=== PATIENT | female | born 1960 | race Caucasian/White ===

== ENCOUNTER 2021-09-03 09:02 | Outpatient (CLI) | payer OTHER, SELFPAY ==
--- NOTE | ~2021-09-03 | US_ITS ---
EXAMINATION: US venous doppler LE RT DATE: 09/03/2021 10:01 INDICATION: Acute deep venous thrombosis of a proximal vein of the right lower limb TECHNIQUE: Grayscale ultrasound images without and with compression and Doppler ultrasound images of the right lower extremity veins were obtained. COMPARISON: None. FINDINGS: The visualized portions of right common femoral vein, profunda (deep) femoral vein, femoral vein, pop liteal vein, peroneal trunk, posterior tibial veins, peroneal veins and gastrocnemius vein are patent . The right greater saphenous vein is not visualized and per patient report has been previously harve lynetted for a bypass graft. IMPRESSION: 1. No deep venous thrombosis in the right lower limb. 2. Nonvisualized right greater saphenous vein, reportedly previously harvested for bypass graft. Reviewed, dictated and finalized at location B.
== END 2021-09-03 09:03 | disposition home or self-care (01) ==
PROVIDERS: PCP Internal Medicine Infectious Disease; Visit Provider Internal Medicine Hematology & Oncology
DX: I82.4Y1 Acute embolism and thrombosis of unspecified deep veins of right proximal lower extremity (principal)
CPT/HCPCS: 93971

== ENCOUNTER 2024-10-22 08:44 | Outpatient (CLI) | payer OTHER, SELFPAY ==
--- OUTSIDE RECORDS SUMMARY | 2024-10-22 08:52 | XMS_ITS | Encounter Summary ---
Author Organization [facility] my[facility]BO [facility] Address [address] [facility] [place] [address] Phone Care Team Providers Care Printing Technician Name Role Phone Grant Bone MD Primary Care Provider [phone] Encounter Details Date Type Department Care Team (Late Contact Info) Description 09/05/2024 Office Communication [place] [id number] [facility] [address] [place] [address] Anabelle Santana MA [address] [place] [address] Social History Tobacco Use Types Packs/Day Years Used Date Smoking Tobacco: Never Assessed Comments Unknown Sex and Gender Information Value Date Recorded Sex Assigned at Not on file Legal Sex Female 3:44 PM EST Gender Identity Not on file Sexual Orientation Not on file documented as of this encounter Plan of Treatment Upcoming Encounters Date Type Department Care Team (Late Contact Info) Description 02/25/2025 12:45 PM SUPERVISOR CUSTOMER COMPLAINT SERVICE Office Visit [place] [facility] [address] [facility] [address] [place] [address] Ramez Salazar DO [address] [facility] 1 [place] [address] documented as of this encounter Visit Diagnoses Not on filedocumented in this encounter Care Teams Printing Technician Relationship Specialty Start Date End Date Grant Bone MD [address] [place] [address] PCP - General Internal Medicine 03/13/24 documented as of this encounter
--- OUTSIDE RECORDS SUMMARY | 2024-10-22 08:52 | XMS_ITS | Encounter Summary ---
Author Organization [facility] Address [address] [place] [address] Care Team Providers Care Breaker Layer Name Role Phone Grant Bone MD Primary Care Provider Encounter Details Date Type Department Care Team (Late st Contact Info) Description 05/26/2017 Pre-Procedure Call [facility] Interventional Radiology [address] [address] Magalie Cruz PA [address] [place] [address] Social History Tobacco Use Types Packs/Day Years Used Date Smoking Tobacco: Former Cigarettes Q uit: 03/06/2017 Smokeless Tobacco: Never Alcohol Use Standard Drinks/Week Comments No 0 (1 standard drink = 0.6 oz pur e alcohol) Comments No Sex and Gender Information Value Date Recorded Sex Assigned at Not on file Legal Sex Female 9:20 AM CDT Gender Identity Not on file Sexual Orientation Not on file documented as of this encounter Plan of Treatment Not on file documented as of this encounter Visit Diagnoses Not on filedocumented in this encounter Care Teams Breaker Layer Relationship Specialty Start Date End Date Grant Bone MD PCP - General INTERNAL MEDICINE 07/24/17 documented as of this encounter
--- OUTSIDE RECORDS SUMMARY | 2024-10-22 08:52 | XMS_ITS | Encounter Summary ---
Author Organization [facility] Address [address] [facility] [place] [address] Care Team Providers Care Pad Machine Offbearer Name Role Phone Tamara Cardona RN Unavailable [phone] Grant Bone MD Primary Care Provider Reason for Visit * Reason Comments Refill Request Encounter Details Date Type Department Care Team (Late st Contact Info) Description 08/30/2018 Refill [facility] [address] [facility] [place] [address] Emanuel Acosta MD [address] [facility] [address] Refill Request Social History Tobacco Use Types Packs/Day Years Used Date Smoking Tobacco: Former Cigarettes 2016 Smokeless Tobacco: Former Alcohol Use Standard Drinks/Week Comments No 0 (1 standard drink = 0.6 oz pur e alcohol) Comments No Sex and Gender Information Value Date Recorded Sex Assigned at Not on file Legal Sex Female 5:01 AM FINISHED CLOTH EXAMINER Gender Identity Not on file Sexual Orientation Not on file documented as of this encounter Functional Status * Is person deaf or have serious hearing difficulty? Answer Date of Assessment Author No 08/10/2018 4:00 PM Monica Beebe RN * Is person blind or have serious difficulty seeing? Answer Date of Assessment Author No 08/10/2018 4:00 PM Monica Beebe RN * Does person have serious difficulty walking/climbing stairs? Answer Date of Assessment Author Yes 08/10/2018 4:00 PM Monica Beebe RN * Does person have difficulty dressing/bathing? Answer Date of Assessment Author No 08/10/2018 4:00 PM Monica Beebe RN * Does person have difficulty doing errands alone? Answer Date of Assessment Author Yes 08/10/2018 4:00 PM Monica Beebe RN documented as of this encounter Mental Status * Does person have difficulty concentrating/remembering/making decisions? Answer Entry Date Author No 08/10/2018 4:00 PM Monica Beebe RN documented in this encounter Plan of Treatment Not on file documented as of this encounter Visit Diagnoses Not on filedocumented in this encounter Care Teams Pad Machine Offbearer Relationship Specialty [place] [address] [place] [id number] PCP - General 03/27/18 Tamara Cardona RN [employer] Teacher 02/22/18 documented as of this encounter
--- OUTSIDE RECORDS SUMMARY | 2024-10-22 08:52 | XMS_ITS | Clinical Summary ---
Author Organization [facility] [employer] [facility] Address [address] [facility] [address] [place] [address] Phone Care Team Providers Care Bridge Teacher Name Role Phone Grant Bone MD Primary Care Provider Encounters Date Type Department Care Team Description 10/15/2024 Documentation Only [address] [address] Ramez Salazar, 10/11/2024 Documentation Only [facility], [address] [address] Ramez Salazar, 09/05/2024 Office Communication [facility], [address] [address] Anabelle Santana MA from Last 3 Months Social History Tobacco Use Types Packs/Day Years Used Date Smoking Tobacco: Never Assessed Comments Unknown Sex and Gender Information Value Date Recorded Sex Assigned at Not on file Legal Sex Female 3:44 PM EST Gender Identity Not on file Sexual Orientation Not on file Last Filed Vital Signs Vital Sign Reading Time Taken Comments Blood Pressure 100/58 07/02/2024 3:16 PM CDT Pulse 68 07/02/2024 3:16 PM CDT Temperature 36.7 C (98 F) 07/02/2024 3:16 PM CDT Respiratory Rate 18 07/02/2024 3:16 PM CDT Oxygen Saturation 97% 07/02/2024 3:16 PM CDT Inhaled Oxygen Concentration - - Weight 110 kg (242 lb) 07/02/2024 3:16 PM CDT Height - - Body Mass Index - - Plan of Treatment Upcoming Encounters Date Type Department Care Team (Late st Contact Info) Description 02/25/2025 12:45 PM MECHANICAL APPRENTICE Office Visit [facility], [facility] [address] [facility] [address] [place] [address] Ramez Salazar DO [address] [facility] 1 [place] [address] Health Maintenance Due Date Last Done Comments Breast Cancer Screening 1960 Pneumococcal Vaccine: 50+ Ye ars (1 of 2 - PCV) 1977 Colorectal Cancer Screening: Annual FOBT 12/27/2007 Colorectal Cancer Screening: Colonoscopy 12/27/2007 Colorectal Cancer Screening: Sigmoidoscopy 12/27/2007 Influenza Vaccine (#1) 2024 Hepatitis B Vaccine Aged Out No longe r eligible based on patient's age to complete this topic Insurance [facility] Care Teams Bridge Teacher Relationship Specialty Start Date End Date Grant Bone MD [address] [place] [address] PCP - General Internal Medicine 03/13/24
--- OUTSIDE RECORDS SUMMARY | 2024-10-22 08:52 | XMS_ITS | Clinical Summary ---
Author Organization [facility] Address [address] [place] [address] Care Team Providers Care Mounter Automatic Name Role Phone Tamara Cardona RN Unavailable Grant Bone MD Primary Care Provider Source Comments [facility],non-owned Affiliates and Associated Physician Practices is amultiple site organization consisting of ambulatory clinics and hospital sitesin [place], [place], [place] and [place]. This disclosure is being madepursuant to the Care Everywhere program and may not contain all information available regarding this patient. Last updated 17.[facility] Allergies Active Allergy Reactions Criticality Noted Date Comments Erythromycin Urticaria Medium 02/20/2018 Tamiflu Urticaria,Other Medium 02/20/2018 Syncope Tetracyclines Urticaria Medium 02/20/2018 Medications * Be aware that medications may not be up to date on this document. Alwaysverify current medications with the patient. amLODIPine (NORVASC) 5 MG tablet Take 5 mg by mouth once daily Active atorvastatin (LIPITOR) 40 MG tablet Take 2 (two) tablets by mouth once daily Active gabapentin (NEURONTIN) 300 MG capsule Take 600 mg by mouth 3 times daily Active busPIRone (BUSPAR) 10 MG tablet Take 20 mg by mouth 2 times daily Active acetaminophen (TYLENOL) 500 MG tablet Take 1 tablet by mouth every 4 hours as needed for Fever or Pain Maximum allowable Acetaminophen amount = 4 Grams (4000 mg) / 24 hours. 30 tablet 9 Active Additional Information Patient not taking.Reported on 07/28/2022 allopurinol (ZYLOPRIM) 100 MG tablet TK 1 T PO QD UTD 02/07/202 0 Active fluticasone propionate (FLONASE) 50 MCG/ACT nasal spray SHAKE LQ AND U 2 SPRAYS IEN QD 0 Active rOPINIRole (REQUIP) 0.5 MG tablet TK 1 T PO QD UTD 0 Active Eliquis 5 MG tablet Take 1 (one) tablet by mouth 2 times daily 2 Active clonazePAM (KlonoPIN) 0.5 MG tablet Take 1 (one) tablet by mouth 3 times daily as needed 3 Active furosemide (Lasix) 40 MG tablet TAKE ONE TABLET BY MOUTH EVERY DAY FOR FLUID RETENTION 3 Active metoprolol succinate XL 24hr (Toprol XL) 25 MG tablet Take 1 (one) tablet by mouth once daily 2 Active sacubitril-ismael sartan (Entresto) 24-26 MG tablet 2 Active traMADol (Ultram) 50 MG tablet TAKE TWO TABLETS BY MOUTH TWICE DAILY NEEDED FOR PAIN 3 Active QUEtiapine (SEROquel) 300 MG tablet Take 1 (one) tablet by mouth at bedtime 3 Active Active Problems Problem Noted Date Diagnosed Date Peripheral arterial disease 10/19/2018 Wound infection after surgery 09/04/2018 Femoral artery stenosis, right 07/05/2018 Critical lower limb ischemia 02/19/2018 Iliac artery occlusion, bilateral Social History Tobacco Use Types Packs/Day Years Used Date Smoking Tobacco: Former Cigarettes 2016 Smokeless Tobacco: Former Tobacco Cessation:Counseling Given: No Alcohol Use Standard Drinks/Week Comments No 0 (1 standard drink = 0.6 oz pur e alcohol) Comments No Sex and Gender Information Value Date Recorded Sex Assigned at Not on file Legal Sex Female 5:01 AM FIXED INCOME MANAGER Gender Identity Not on file Sexual Orientation Not on file Last Filed Vital Signs Vital Sign Reading Time Taken Comments Blood Pressure 92/45 07/28/2022 8:52 AM CDT left arm 110/80 Pulse 100 07/28/2022 8:52 AM CDT Temperature 36.2 C (97.2 F) 07/28/2022 8:52 AM CDT Respiratory Rate 17 07/30/2019 1:59 PM CDT Oxygen Saturation 98% 07/28/2022 8:5 2 AM CDT Inhaled Oxygen Concentration 28% 07/2018 12:00 PM FIXED INCOME MANAGER Weight 103 kg (227 lb) 07/28/2022 8:52 AM CDT Height 162.6 cm (5' 4) 07/28/2022 8:52 AM CDT Body Mass Index 38.96 07/28/2022 8:52 AM CDT Plan of Treatment Health Maintenance Due Date Last Done Comments BONE DENSITY TESTING 1960 COLOGUARD (AGES 45-75) - COLON CA SCREENING 1958 COLON MONITORING 1958 COLONOSCOPY - COLON CA SCREENING 1958 CT COLONOGRAPHY - COLON CA SCREENING 1958 Colorectal Cancer Screening 1958 FIT - COLON CA SCREENING 1958 FLEX SIG - COLON CA SCREENING 1958 DTAP/TDAP/TD VACCINES (1 - Tdap) 1977 PNEUMOCOCCAL VACCINE 50+ (1 of 1 - PCV) 2008 ZOSTER VACCINE (1 of 2) 2008 MAMMOGRAM 05/12/2016 05/12/2014 Respiratory Syncytial Virus (RSV) Vaccine Pt: or over 60 yrs (1 - Risk 60-74 years 1-dose series) 2018 SCREENING FOR DIABETES 07/29/2022 0, 09/07/2018, 09/06/2018, Additional history exists DEPRESSION SCREENING 02/21/2024 COVID-19 VACCINE ( season) 2024 INFLUENZA VACCINE (#1) 2024 HEPATITIS C SCREENING Completed 09/04/2018 HIV SCREENING Completed 09/04/2018 HEPATITIS B VACCINE Aged Out No longe r eligible based on patient's age to complete this topic HIB VACCINE Aged Out No longer eligi ble based on patient's age to complete this topic HPV VACCINE Aged Out No longer eligi ble based on patient's age to complete this topic MENINGOCOCCAL (Group B) VACCINE SHARED DECISION-MAKING Aged Out No longer eligible based on patient's age to complete this topic MENINGOCOCCAL GROUPS A/C/Y/W VACCINE Aged Out No longer eligible based on patient's age to complete this topic Medical Devices Implanted Type Area Mainspring Winder Device Identifier Shelf Expiration Date Model / Serial / Lot Graft Cv 12/7mm 40cm Hmshld Gld Mcvl 2 Implanted:Qty: 1 on 02/23/2018 by Renaldo Joiner MD at [facility] N/A: Aorta Maquet 05/20/2022 [id number] / / [id number] Procedures Procedure Name Priority Date/Time Associated Diagnosis Comments BASIC METABOLIC PANEL (CALCIUM TOTAL) STAT 07/30/2019 6:47 AM CDT PAD (peripheral artery disease) HEPATITIS C AB SCREEN RFLX NAAT QUANT STAT 09/04/2018 5:34 PM CDT HIV-1 HIV-2 ANTIGEN/ANTIBODY STAT 09/04/2018 5:34 PM CDT from Last 3 Months or Most Recently Relevant to Health Maintenance Results * (ABNORMAL) BASIC METABOLIC PANEL (CALCIUM TOTAL) (07/30/2019 6:47 AM CDT) BUN 19 7 - 26 mg/dL 07/30/2019 7:33 AM [facility] Creatinine 1.0 0.6 - 1.2 mg/dL 07/30/2019 7:33 AM [facility] Sodium 142 136 - 145 mmol/L 07/30/2019 7:33 AM [facility] Potassium 4.2 3.5 - 4.5 mmol/L 07/30/2019 7:33 AM [facility] Chloride 105 98 - 107 mmol/L 07/30/2019 7:33 AM [facility] CO2 24 22 - 29 mmol/L 07/30/2019 7:33 AM [facility] Glucose 142(H) 70 - 115 mg/dL 07/30/2019 7:33 AM [facility] Calcium 10.0 8.4 - 10.2 mg/dL 07/30/2019 7:33 AM [facility] Anion Gap 17 8 - 18 07/30/2019 7:33 AM [facility] BUN/Creatinine Ratio 19 7 - 23 07/30/2019 7:33 AM [facility] Osmolality Calculated 299 270 - 300 mOsm/kg 07/30/2019 7:33 AM [facility] eGFR 57(L) >60 mL/min/1.7 3 m2 07/30/2019 7:33 AM CDT [facility] Blood BLOOD SPECIMEN / Unknown Venipuncture / Unknown 07/30/2019 6:47 AM CDT 07/30/2019 7:03 AM CDT Renaldo Joiner MD LAB - CHEMISTRY ORDERABLES Final Result Performing Organization Address [facility]/ZIP Co de Phone Number [facility] [address] [place] [address], [facility] [phone] * HIV-1 HIV-2 ANTIGEN/ANTIBODY (09/04/2018 5:34 PM CDT) HIV Antigen/Antibod y 1 & 2 Non-reacti ve Non-react maurice 09/04/2018 6:22 PM CDT [facility] Comment: Neither HIV-1 p24 Antigen nor HIV-1/HIV-2 Antibodies are detected. Blood BLOOD SPECIMEN / Unknown Venipuncture / Unknown 09/04/2018 5:34 PM CDT 09/04/2018 5:41 PM CDT Result [facility] Gricelda Espitia MD LAB - HEMATOLOGY ORDERABLES Susie l Result Performing Organization Address City/[facility] [[email or web address]] Co de Phone Number [facility] [address] [place] [address] * HEPATITIS C AB SCREEN RFLX NAAT QUANT (09/04/2018 5:34 PM CDT) Hepatitis C Antibody Non-react maurice Non-reac tive 09/04/2018 6:22 PM CDT [facility] Comment: Hepatitis C Antibody screen indicates no serologic evidence of past or current infection with Hepatitis C Virus. Patients with unexplained liver disease who are immunocompromised or suspected of having acute Hepatitis C infection may benefit from Nucleic Acid Test (CARMEN) for Hepatitis C Viral RNA to confirm Hepatitis C status. 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 Adv Directive/Living Will/POA 09/10/2018 7:06 AM * Full Code (Latest Code Status on File) Date Activated Date Inactivated Comments 09/04/2018 6:11 PM 09/07/2018 6:30 PM * Full Code Date Activated Date Inactivated Comments 08/10/2018 4:03 PM 08/14/2018 2:02 PM * Full Code Date Activated Date Inactivated Comments 02/25/2018 12:11 PM 03/02/2018 12:41 PM * Full Code Date Activated Date Inactivated Comments 02/19/2018 5:39 PM 02/25/2018 12:11 PM Care Teams Mounter Automatic Relationship Specialty Start Date End Date Grant Bone MD [address] [place], [place] [id number] PCP - General 03/27/18 Tamara Cardona RN Oriental Medicine Practitioner 02/22/18
--- OUTSIDE RECORDS SUMMARY | 2024-10-22 08:52 | XMS_ITS | Encounter Summary ---
Author Organization [facility] Address [address] [place] [address] Care Team Providers Care Twisting Frame Fixer Name Role Phone Grant Bone MD Primary Care Provider [phone] Encounter Details Date Type Department Care Team (Late st Contact Info) Description 05/30/2017 Pre-Procedure Call [facility] Pre-Admission [place] [address] Ramez Paulino MD Social History Tobacco Use Types Packs/Day Years [...] on file documented as of this encounter Last Filed Vital Signs Vital Sign Reading Time Taken Comments Blood Pressure - - Pulse - - Temperature - - Respiratory Rate - - Oxygen Saturation - - Inhaled Oxygen Concentration - - Weight 72.6 kg (160 lb) 05/30/2017 3:00 PM CDT Height 162.6 cm (5' 4) 05/30/2017 3:00 PM CDT Body Mass Index 27.46 05/30/2017 3:00 PM CDT documented in this encounter Progress Notes * Teri Corrales RN - 05/30/2017 3:31 PM CDT I called Lora' office to find out if the patient needs to hold Meloxicam. said yes 7-10 days. Patient called and said last dose was 05/26/17. okay with this. documented in this encounter Plan of Treatment Not on file documented as of this encounter Visit Diagnoses Diagnosis Lumbar stenosis- Primary Spinal stenosis, lumbar region, without neurogenic claudication Lumbar spine instability Other unspecified back disorder documented in this encounter Care Teams Twisting Frame Fixer Relationship Specialty Start Date End Date Grant Bone MD PCP - General INTERNAL MEDICINE 07/24/17 documented as of this encounter
--- OUTSIDE RECORDS SUMMARY | 2024-10-22 08:53 | XMS_ITS | Clinical Summary ---
Author Organization [facility] Zhou tate Annamaria Address [address] [address] Care Team Providers Care Budget Controller Name Role Phone Grant Bone MD Primary Care Provider [phone] Allergies Active Allergy Reactions Criticality Noted Date Comments Erythromycin Hives High 03/13/2017 Oseltamivir Hives High 05/29/2015 Loss of consciousness, hives Tetracycline Hives High 03/13/2017 Medications allopurinoL (ZYLOPRIM) 100 mg tablet TAKE 2 TABLETS BY MOUTH EVERY DAY FOR GOUT 2 Active amLODIPine (NORVASC) 5 mg tablet TAKE 1 TABLET BY MOUTH EVERY DAY FOR BLOOD PRESSURE 2 Active Eliquis 5 mg tablet TAKE ONE TABLET TWICE DAILY BY MOUTH 2 Active aspirin (ECOTRIN EC) 81 mg Tablet, Delayed Release (E.C.) TAKE 1 TABLET BY MOUTH DAILY TO PREVENT BLOOD CLOTS 2 Active atorvastatin (LIPITOR) 80 mg tablet TAKE 1 TABLET BY MOUTH EVERY DAY TO LOWER CHOLESTEROL 2 Active busPIRone (BUSPAR) 15 mg Tablet Take 15 mg by mouth 3 times daily. 2 Active clonazePAM (KlonoPIN) 0.5 mg Tablet TAKE 1 TABLET 3 TIMES A DAY BY ORAL ROUTE NEEDED. 2 Active DULoxetine (CYMBALTA) 60 mg Capsule, Delayed Release(E.C.) TAKE TWO CAPSULES BY MOUTH EVERY DAY 2 Active rOPINIRole (REQUIP) 0.5 mg tablet TAKE 1 TABLET BY MOUTH EVERY DAY DIRECTED 2 Active traMADoL (ULTRAM) 50 mg tablet TAKE 2 TABLETS BY MOUTH TWO TIMES DAILY NEEDED FOR 30 DAYS 2 Active cyclobenzaprine (FLEXERIL) 10 mg tablet TAKE ONE TABLET BY MOUTH EVERY DAY NEEDED FOR MUSCLE SPASMS 2 Active docusate sodium (COLACE) 100 mg capsule TAKE ONE CAPSULE BY MOUTH TWICE DAILY FOR CONSTIPATION 2 Active Enulose 10 gram/15 mL 10 gram/15 mL solution TAKE 15ML BY MOUTH EVERY DAY NEEDED FOR CONSTIPATION 2 Active levoFLOXacin (LEVAQUIN) 750 mg tablet TAKE ONE TABLET BY MOUTH EVERY DAY FOR 5 DAYS 2 Active QUEtiapine (SEROquel) 300 mg tablet Take 300 mg by mouth daily at bedtime. 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 06/08/2021 Family History Relation Name Status Comments Brother Daughter Alive Father Mother Sister Alive Son 1 Alive Son 2 Social History Tobacco Use Types Packs/Day Years Used Date Smoking Tobacco: Former Cigarettes Smokeless Tobacco: Never Tobacco Cessation:Counseling Given: Not Answered Comments:quit a few years ago Alcohol Use Standard Drinks/Week Comments Yes 0 (1 standard drink = 0.6 oz pur e alcohol) Comments Unknown Sex and Gender Information Value Date Recorded Sex Assigned at Not on file Legal Sex Female 10:45 AM ALUMNI RELATIONS MANAGER Gender Identity Not on file Sexual Orientation Not on file Last Filed Vital Signs Vital Sign Reading Time Taken Comments Blood Pressure 109/63 10/14/2021 1:34 PM CDT Pulse 106 10/14/2021 1:34 PM CDT Temperature 37 C (98.6 F) 10/14/2021 1:34 PM CDT Respiratory Rate - - Oxygen Saturation 93% 10/14/2021 1:34 PM CDT Inhaled Oxygen Concentration - - Weight 111.6 kg (246 lb) 10/14/2021 1:34 PM CDT Height 162.6 cm (5' 4) 10/14/2021 1:34 PM CDT Body Mass Index 42.23 10/14/2021 1:34 PM CDT Plan of Treatment Health Maintenance Due Date Last Done Comments DTAP/TDAP/TD VACCINES (1 - Tdap) 1977 BREAST CANCER SCREENING 1998 COLORECTAL SCREENING 12/27/2003 Colorectal Cancer Screening 12/27/2003 FIT-DNA Q 3 years 12/27/2003 FIT/FOBT Q 1 year 12/27/2003 Flex Sig/CT Colonography Q 5 years 12/27/2003 PNEUMOCOCCAL VACCINE 50+ YEARS (1 of 1 - PCV) 12/27/19 09 ZOSTER VACCINE (1 of 2) 2008 OSTEOPOROSIS SCREENING 12/27/2023 INFLUENZA VACCINE (#1) 2024 RSV VACCINE (60+ or ) (1 - 1-dose 75+ series) [address] [place] [address] MEDICAID Care Teams Budget Controller Relationship Specialty Start Date End Date Grant Bnoe MD [address] [place] [address] PCP - General Internal Medicine 06/08/21
--- OUTSIDE RECORDS SUMMARY | 2024-10-22 08:53 | XMS_ITS | Clinical Summary ---
Author Organization [facility] [address] [place] [id number] Care Team Providers Care Pin Sorter And Bagger Name Role Phone Grant Bone MD Primary Care Provider Allergies Active Allergy Reactions Criticality Noted Date Comments Erythromycin Oseltamivir Tetracycline Medications fluticasone propionate (FLONASE) 50 mcg/actuation nasal spray SHAKE LQ AND U 2 SPRAYS IEN QD 03/25/2019 Active rOPINIRole (REQUIP) 0.5 mg tablet TK 1 T PO QD UTD 03/26/2019 Active atorvastatin (LIPITOR) 80 mg tablet Take by mouth 03/03/2015 Active amLODIPine (NORVASC) 5 mg tablet Take by mouth 11/25/2014 Active aspirin 81 mg chewable tablet Take 81 mg by mouth daily 03/02/2018 Active allopurinoL (ZYLOPRIM) 100 mg tablet TK 1 T PO QD UTD 03/29/2019 Active gabapentin (NEURONTIN) 300 mg capsule Take by mouth 07/03/[address] (CYMBALTA) 60 mg capsule Take by mouth 11/25/2014 Active busPIRone (BUSPAR) 10 mg tablet Take 20 mg by mouth 2 (two) times a day Active QUEtiapine (SEROquel) 100 mg tablet Take by mouth nightly 11/28/2018 Active clonazePAM (KlonoPIN) 0.5 mg tablet 1 01/19/2021 Active cyclobenzaprine (FLEXERIL) 10 mg tablet Take 1 tablet by mouth 3 (three) times a day 09/19/2017 Active Active Problems Problem Noted Date Diagnosed Date Complex tear of lateral meni scus of right knee as current injury 02/18/2021 Assessment & Plan (02/18/2021 9:56 AM DEAF/HARD OF HEARING SPECIALIST): Patient has a tear of the lateral meniscus of the knee and conjunction with underlying arthritis. If the arthritis is significant she may have symptoms persist but generally arthroscopic partial meniscectomy is helpful for the tearing. 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/05/2018 Critical lower limb ischemia 02/19/2018 Deep vein thrombosis (DVT) 02/16/2018 Dyslipidemia 02/16/2018 Foraminal stenosis of lumbar region 08/01/2017 SI (sacroiliac) joint inflammation 03/13/2017 Scoliosis 07/06/2013 Overview (05/27/2016): Scoliosis Migraine 07/06/2013 Overview (05/27/2016): Migraines Systemic lupus erythematosus 07/06/2013 Overview (05/27/2016): Lupus Depression 07/06/2013 Overview (05/27/2016): Depression Osteoporosis 07/06/2013 Overview (05/27/2016): Osteoporosis Osteoarthritis 07/06/2013 Overview (05/27/2016): DJD (degenerative joint disease) Arthralgia of hip 07/06/2013 Overview (05/27/2016): Hip pain, right Impaired glucose tolerance 07/23/2012 Overview (05/25/2016): Borderline diabetes Hypertension 07/23/2012 Overview (05/27/2016): Hypertension Hypercholesterolemia 07/23/2012 Overview (05/27/2016): Hypercholesterolemia Immunizations Immunization Administration Dates Next Due Tdap 11/25/2009 Surgical History Surgery Date Site/Laterality Comments OTHER SURGICAL HISTORY kidney pain: s/p nephrectomy, L OTHER SURGICAL HISTORY 1997 cervical dysplasia: s/p PROMISE-BSO OTHER SURGICAL HISTORY 1980 s/p cholecystectomy, open BLADDER SURGERY Bladder sling Medical History Medical History Date Comments Hx Other Medical kidney pain Hx Other Medical cervical dyspla hosea Family History Medical History Relation Name Comments Coronary artery disease Father Elin nary artery disease; Diabetes type II Father Diabetes -T ype 2; COPD Mother copd; Lupus Mother Lupus erythemat osus; Glaucoma Other 2 Family history of Glaucoma; Heart disease Other 2 Family history of Heart disease; Kidney disease Other 2 Family histor y of Renal disease; Other Other 2 Family history of Cancer -rectal; Thyroid disease Other 2 Family histo ry of Thyroid disease; Relation Name Status Comments Father Mother Other 1 Alive Other 2 Social History Tobacco Use Types Packs/Day Years Used Date Smoking Tobacco: Former Smokeless Tobacco: Never Comments:Smoking History Pac ks/day: 4 Cigarettes Alcohol Use Standard Drinks/Week Comments No 0 (1 standard drink = 0.6 oz pur e alcohol) Personal Safety Answer Date Recorded Getting School Help Needed Not on file 05/05 Comments Unknown Sex and Gender Information Value Date Recorded Sex Assigned at Not on file Legal Sex Female 7:41 PM DEAF/HARD OF HEARING SPECIALIST Gender Identity Not on file Sexual Orientation Not on file Obstetrics History Last Filed Vital Signs Vital Sign Reading Time Taken Comments Blood Pressure 130/76 02/18/2021 8:47 AM DEAF/HARD OF HEARING SPECIALIST Pulse 90 02/09/2015 9:46 AM DEAF/HARD OF HEARING SPECIALIST Temperature 36.6 C (97.8 F) 02/09/2015 9:46 AM DEAF/HARD OF HEARING SPECIALIST Respiratory Rate - - Oxygen Saturation 98% 02/09/2015 9:46 AM DEAF/HARD OF HEARING SPECIALIST Inhaled Oxygen Concentration - - Weight 106.1 kg (233 lb 12.8 oz) 02/18/2021 8:47 AM DEAF/HARD OF HEARING SPECIALIST Height 160 cm (5' 3) 02/18/2021 8:47 AM DEAF/HARD OF HEARING SPECIALIST Body Mass Index 41.42 02/18/2021 8:47 AM DEAF/HARD OF HEARING SPECIALIST Plan of Treatment Not on file Insurance [facility] Care Teams Pin Sorter And Bagger Relationship Specialty Start Date End Date Grant Bone MD [id number] [id number] PCP - General Internal Medicine 02/11/21
--- OUTSIDE RECORDS SUMMARY | 2024-10-22 08:53 | XMS_ITS | Clinical Summary ---
Author Organization [facility] Address [address] [place] [id number] Care Team Providers Care Pump Servicer Helper Name Role Phone Grant Bone MD Primary Care Provider [phone] Allergies Active Allergy Reactions Criticality Noted Date Comments Erythromycin Hives 03/13/2017 Oseltamivir Other (see comment),Hives 05/29/2015 Loss of consciousness, hives Tetracycline Hives 03/13/2017 Medications atorvastatin 80 MG tablet TK 1 T PO QD 1 02/18/2017 Active bisacodyl 5 MG Tab EC Take 5 mg by mouth. Active amlodipine 5 MG tablet Take 5 mg by mouth. Active mirtazapine 15 MG tablet Take 15 mg by mouth nightly at bedtime. Active gabapentin 300 MG capsule Take 2 capsules by mouth 3 (three) times a day. 11 07/03/2017 Active hydrocodone-hilario taminophen 5-325 MG tablet Take 1-2 tablets by mouth every 6 (six) hours as needed for Pain (incisional). 40 tablet 08/02/2017 Active diazepam (VALIUM) 5 MG tablet Take 1 tablet (5 mg total) by mouth every 8 (eight) hours as needed (Spasms). 30 tablet 08/02/2017 Active meloxicam 15 MG tablet Take 1 tablet by mouth daily. 10/03/2016 Active traMADol 50 MG tablet Take 1 tablet by mouth 3 (three) times daily as needed. 09/19/2017 Active amlodipine 5 MG tablet Take by mouth daily. 11/25/2014 Active atorvastatin 80 MG tablet Take by mouth daily. 03/03/2015 Active calcium carbonate (CALCIUM 600) 600 MG tablet Take 1 tablet by mouth 2 (two) times daily. 07/13/2016 Active vitamin D3, cholecalciferol , 5000 UNITS capsule Take 1 capsule by mouth daily. 07/13/2016 Active cyclobenzaprine 10 MG tablet Take 1 tablet by mouth 3 (three) times daily. 09/19/2017 Active docusate sodium (DOCQLACE) 100 MG capsule Take by mouth 2 (two) times daily. 12/24/2014 Active duloxetine 60 MG capsule Take 1 capsule by mouth 2 (two) times daily. 11/25/2014 Active gabapentin 600 MG tablet Take by mouth 3 (three) times daily. 11/25/2014 Active mirtazapine 30 MG tablet 07/11/2017 Active propranolol 20 MG tablet Take by mouth 3 (three) times daily. 07/11/2017 Active Active Problems Problem Noted Date Diagnosed Date Foraminal stenosis of lumbar region 08/01/2017 S/P lumbar laminectomy 08/01/2017 Lumbar stenosis 08/01/2017 SI (sacroiliac) joint inflammation 03/13/2017 Family History Medical History Relation Comments Diabetes Father Heart Disease Father Cancer Maternal Grandfather Heart Disease Maternal Grandmother Lupus Mother Relation Status Comments Brother Alive Daughter Alive Father Maternal Grandfather Maternal Grandmother Mother Sister Alive Son Alive Social History Tobacco Use Types Packs/Day Years [...] Sign Reading Time Taken Comments Blood Pressure 100/82 10/10/2017 2:33 PM CDT Pulse 77 10/10/2017 2:33 PM CDT Temperature 37 C (98.6 F) 10/10/2017 2:10 PM CDT Respiratory Rate 18 10/10/2017 2:33 PM CDT Oxygen Saturation 92% 10/10/2017 2:33 PM CDT Inhaled Oxygen Concentration - - Weight 106.1 kg (234 lb) 10/10/2017 2:10 PM CDT Height 160 cm (5' 3) 10/10/2017 2:10 PM CDT Body Mass Index 41.45 10/10/2017 2:10 PM CDT Plan of Treatment Health Maintenance Due Date Last Done Comments Colorectal Cancer Screening Colonoscopy (10 Years) 1958 Hepatitis C 1976 DTaP, Tdap and Td Vaccines ( 1 - Tdap) 1977 Mammogram Screening 1998 Pneumococcal Vaccine: 50+ Ye ars (1 of 1 - PCV) 2008 Zoster Vaccines (1 of 2) 2008 Dexa Scan (General) 12/27/2023 COVID-19 Vaccine (1 - 2023-2 5 season) 2024 RSV Immunization or 60+ Years (1 - 1-dose 75+ series) 2033 Meningococcal B Vaccine Aged Out No l onger eligible based on patient's age to complete this topic Meningococcal Vaccine Aged Out No kelle jose daniel eligible based on patient's age to complete this topic RSV Immunizations Under 20 Months Aged Out No longer eligible based on patient's age to complete this topic Insurance [facility] Advance Directives * Full Code (Latest Code Status on File) Date Activated Date Inactivated Comments 08/01/2017 2:57 PM 08/02/2017 4:51 PM Care Teams Pump Servicer Helper Relationship Specialty Start Date End Date Grant Bone MD PCP - General INTERNAL MEDICINE 07/24/17
--- NOTE | 2024-10-22 09:20 | NEURO_ITS ---
Impression: # Known diabetic complains of increasing numbness ? # Bilateral axonal motor sensory neuropathy. ? # Neurogenic changes on Needle/ EMG exam. Nerve Conduction Studies ?Stim Site NR Peak (ms) P-T Amp (?V) Site1 Site2 Delta-P (ms) Dist (cm) Caleb (m/s) Left Sup Fibular Anti Sensory (Ant Lat Mall)??? NO RESPONSE 14 cm NR 14 cm Ant Lat Mall 16.0 Site 2 NR Right Sup Fibular Anti Sensory (Ant Lat Mall)??? NO RESPONSE 14 cm NR 14 cm Ant Lat Mall 16.0 Left Sural Anti Sensory (Lat Mall)??? NO RESPONSE Calf NR Calf Lat Mall 16.0 Right Sural Anti Sensory (Lat Mall)??? NO RESPONSE Calf NR Calf Lat Mall 16.0 ?Stim Site NR Onset (ms) O-P Amp (mV) Site1 Site2 Delta-0 (ms) Dist (cm) Caleb (m/s) Left Peroneal Motor (Vastus Med) Ankle ? 4.5 3.2 Popit Ankle 8.9 37.0 42 Popit ? 13.4 0.8 Right Peroneal Motor (Vastus Med) Ankle ? 4.7 1.3 Popit Ankle 8.9 39.0 44 Popit ? 13.6 0.2 Left Tibial Motor (Abd Negron Brev) Ankle ? 4.5 2.6 Knee Ankle 10.3 38.0 37 Knee ? 14.8 1.8 Right Tibial Motor (Abd Negron Brev) Ankle ? 4.8 0.7 Knee Ankle 9.8 41.0 42 Knee ? 14.6 0.5 F Wave Studies ?NR F-Lat (ms) L-R F-Lat (ms) Left Peroneal (Mrkrs) (EDB)??? DISPERSED RESPONSE NR Right Peroneal (Mrkrs) (EDB)??? DISPERSED RESPONSE NR Left Tibial (Mrkrs) (Abd Hallucis)??? DISPERSED RESPONSE NR Right Tibial (Mrkrs) (Abd Hallucis)??? DISPERSED RESPONSE NR Electromyography ?Side Muscle Nerve Root Ins Act Fibs Amp Dur Recrt Comment Right AntTibialis Dp Br Fibular L4-5 Nml Nml Nml Nml Nml Left AntTibialis Dp Br Fibular L4-5 Nml Nml Nml Nml Nml Right Ext Dig Brev Dp Br Fibular L5, S1 Nml Nml Decr >12ms +1 Left Ext Dig Brev Dp Br Fibular L5, S1 Nml Nml Decr >12ms +1 Right Fibularis Long Sup Br Fibular L5-S1 Nml Nml Nml Nml Nml Left Fibularis Long Sup Br Fibular L5-S1 Nml Nml Nml Nml Nml Right Flex Dig Long Tibial L5-S2 Nml Nml Decr >12ms +1 Left Flex Dig Long Tibial L5-S2 Nml Nml Decr >12ms +1 Right Gastroc Tibial S1-2 Nml Nml Nml Nml Nml Left Gastroc Tibial S1-2 Nml Nml Nml Nml Nml Right QuadratusFem QuadFemoris L4-5, S1 Nml Nml Nml Nml Nml Left QuadratusFem QuadFemoris L4-5, S1 Nml Nml Nml Nml Nml
== END 2024-10-22 08:45 | disposition home or self-care (01) ==
PROVIDERS: PCP Internal Medicine Infectious Disease; Visit Provider Podiatrist Foot & Ankle Surgery
DX: G62.9 Polyneuropathy, unspecified (principal)
CPT/HCPCS: 95886; 95910